=== PATIENT | male | born 1935 | race Caucasian/White ===

== ENCOUNTER → 2018-06-04 | Outpatient (CLI) | payer MEDICARE, OTHER ==
--- NOTE | 2018-06-04 14:23 | RADIOLOGY REPORT (SQ) ---
EXAM DESCRIPTION: CAROTID DOPPLER COMPLETED DATE/TIME: 06/04/2018 1:48 pm REASON FOR STUDY: BILATERAL RETINAL HEMORRHAGE H35.63 RETINAL HEMORRHAGE, BILATERAL COMPARISON: Cervical spine plain films 07/13/2010 TECHNIQUE: Grayscale ultrasound, Doppler velocity and spectra, and color Doppler images acquired of the extra-cranial carotid and vertebral arteries. Images stored on PACS. LIMITATIONS: None. FINDINGS: RIGHT CAROTID CCA Velocities: Within normal limits. Right common carotid artery peak systolic velocity 0.7 m/sec ICA Velocities Peak systolic 1.2 m/s. End diastolic 0.37 m/s. Proximal ICA/CCA peak systolic ratio 1.5. Mixed calcific and noncalcific plaque at the right carotid bifurcation shadows the origin of the righ t proximal internal carotid artery at the bifurcation. Immediately distal to the shadowing plaque, v elocities suggest less than 50% diameter stenosis of the proximal right internal carotid artery. LEFT CAROTID CCA Velocities: Within normal limits. Left common carotid artery peak systolic velocity 0.74 m/sec ICA Velocities Peak systolic 0.57 m/s. End diastolic 0.18 m/s. Proximal ICA/CCA peak systolic ratio 0.9. Minimal mixed calcific and noncalcific plaque at the right carotid bifurcation. No flow significant stenosis of the proximal right ICA. VERTEBRAL ARTERIES: Antegrade flow. Normal waveforms. SUBCLAVIAN ARTERIES: Not evaluated OTHER: No other significant finding. IMPRESSION: Atherosclerotic changes at both carotid bifurcations without flow significant stenosis o f the proximal right or left internal carotid arteries COMMENT: Quality ID #[id number]: Velocity criteria are extrapolated from the diameter data as defined by kayla reeves [employer] in Ultrasound Consensus Conference. Radiology 2003: 229; 340-346. TECHNICAL DOCUMENTATION: JOB ID: [id number] [employer]- All Rights Reserved Reading location - IP/workstation name: [email or web address]
== END ==
LOC: SP 16:13
PROVIDERS: ATTEND Ophthalmology
DX: H35.63 Retinal hemorrhage, bilateral (principal)
CPT/HCPCS: 93880